=== PATIENT | male | born 1990 | race Caucasian/White ===

== ENCOUNTER 2017-02-27 14:01 | Emergency (ER) | payer MEDICAID ==
--- NOTE | 2017-02-27 15:31 | ERNOTE ---
<VonSameer bowie - Last Filed: 02/27/17 15:30> Lower Extremity HPI - General Time Seen by Provider: 02/27/17 15:30 - Immun/Allergies/Home Medications Immunizations: IMMUNIZATION HX Immunizations Up to Date Yes History of Influenza Vaccine No Hx Pneumococcal Vaccination No Allergies/Adverse Reactions: Allergies Allergy/AdvReac Type Severity Reaction Status Date / Time No Known Allergies Allergy Verified 02/27/17 14:51 Home Medications: HOME MEDICATIONS Methylphenidate [Daytrana] 1 each TD DAILY 02/27/17 [Last Taken Unknown] Ondansetron [Zofran Odt] 4 mg PO Q6H PRN #20 tab 02/27/17 [Last Taken Unknown] - Patient's Past Medical History Patient History - Medical: ADHD, Other Patient History - Cardiac/Respiratory: No pertinent hx Patient History - Cancer: No Hx of Cancer Patient History - Surgical Procedures: Gastric Bypass Patient History - Other: None - Social History Living Situations: home Abuse History: No History of abuse Psych History: No pertinent hx Smoking Status: Current every day smoker Have you smoked in the past 12 months: Yes Alcohol Use: sober Drug Use: none - Immunizations Immunizations Up to Date: Yes Hx Pneumococcal Vaccination: No History of Influenza Vaccine: No ED Progress - Vital Signs Vital Signs: Vital Signs 02/27/17 14:48 Temperature 37.4 C Pulse Rate 884 H Respiratory 16 Rate Blood Pressure 130/65 O2 Sat by Pulse 99 Oximetry - Progress/Reassessment Chief Complaint: Ankle Injury/ Pain Departure Clinical Impression: Gout attack Qualifiers: Gout site: ankle Gout etiology: other secondary cause Laterality: right Qualified Code(s): 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 Continue to keep her follow-up appointment on Tuesday with your primary care physician. Referrals: Carleen Nuñez APN [Primary Care Provider] - Prescriptions: Ondansetron [Zofran Odt] 4 mg PO Q6H PRN #20 tab PRN Reason: Nausea <Bone,Brad - Last Filed: 02/27/17 22:50> Lower Extremity HPI - Narrative Date of Service: 02/27/17 - General Lower Extremities Pain: ankle: right Source: patient Exam Limitations: no limitations - Immun/Allergies/Home Medications Immunizations: IMMUNIZATION HX Immunizations Up to Date Yes History of Influenza Vaccine No Hx Pneumococcal Vaccination No - History of Present Illness Narrative: 27-year-old male came to the emergency room for what he described as a count attack to his right ankle. Patient states he has pain when he applies pressure to the right ankle when walking. Patient states that he has a history of gout. Date (Duration): 02/27/17 Occurred: this morning Location of Incident: home Method of Injury: Reports: no apparent injury Loss of Consciousness: Reports: no loss of consciousness Modifying Factors - (Improves): Reports: rest Modifying Factors - (Worsens): Reports: movement Associated Symptoms: Reports: unable to bear weight Other Injuries: Reports: none Subsequent Symptoms: Denies: sensory loss, numbness, motor loss, bowel/bladder problem Review of Systems - Review of Systems Constitutional: Present: no symptoms reported EYE: Present: no symptoms reported ENT: Present: no symptoms reported Respiratory: Present: no symptoms reported Cardiology: Present: no symptoms reported Gastrointestinal/Abdominal: Present: no symptoms reported Genitourinary: Present: no symptoms reported Musculoskeletal: Present: See HPI, joint pain Skin: Present: no symptoms reported Neurological: Present: no symptoms reported Endocrine: Present: no symptoms reported Hematologic/Lymphatic: Present: no symptoms reported Psych: Present: no symptoms reported All Other Systems: All systems neg except as marked Physical Exam - Physical Exam Narrative: pain with movement/manipulation. states he did eat salmon several times this week and thinks it may be a contributing factor. General Appearance: Present: wd/wn, alert, no apparent distress Eye Exam: Normal inspection: bilateral Ears, Nose, Throat: Present: normal ENT inspection Neck: Present: normal inspection Respiratory: Present: no respiratory distress, normal breath sounds, lungs clear Cardiovascular/Chest: Present: regular rate, rhythm, no murmur Gastrointestinal/Abdominal: Present: normal bowel sounds, soft Back Exam: Present: normal inspection, normal range of motion Extremity Exam: Present: normal except - - ankle pain with manipulation, decreased range of motion. Absent: pedal edema, bony tenderness, joint redness , joint swelling, extremity edema Neurological Exam: Present: alert, normal mood/affect Skin Exam: Present: normal color, warm/dry Lymphatic Exam: Present: no adenopathy ED Progress - Results and Orders Patient's Lab Results:: I have reviewed the patient's lab results. Results and Orders: elevated uric acid level - Vital Signs Vital Signs: Vital Signs 02/27/17 02/27/17 14:48 16:05 Temperature 37.4 C Pulse Rate 884 H 92 Respiratory 16 12 Rate Blood Pressure 130/65 145/78 O2 Sat by Pulse 99 99 Oximetry - Progress/Reassessment Progress:: Improved Progress Note-Subjective: 02/27/17 22:50 im pain medication Plan - Plan Plan: Patient states that any oral Medications for GOUT do not work for him. He is refusing to take any here also. He says he has pain medication ( norco) at home and and will take that.
[2017-02-27] MEDS ORDERED: KETOROLAC TROMETHAMINE 60 MG/2 ML VIAL IM ONE ×2 (15:39→16:01)
--- OUTSIDE RECORDS SUMMARY | 2017-02-27 15:49 | XMS REPORT | Continuity of Care Document ---
:1990 Author Organization [facility] [place] [address] Care Team Providers Name Role Phone Carleen Nuñez Primary Care Provider [phone] Source Comments This disclosure is being made pursuant to the [employer] program and maynot contain all information available regarding this patient.[facility] Active Allergies and Adverse Reactions No Known Allergies Current Medications Be aware that medications may not be up to date as of this document. Alwaysverify current medications with the patient. Prescription Sig. Disp. Refills Start Date End Date Status HYDROcodone-acetaminophen Take 1 tablet by 0 07/02/2016 Active (NORCO) 5-325 MG per mouth every 6 (six) tablet hours as needed. Active Problems Not on file Most Recent Encounters Date Type Specialty Providers Description 02/17/2017 Data Import Social History Tobacco Use Types Packs/Day Years Used Date Current Every Day Smoker Cigarettes Smokeless Tobacco: Current User Chew Tobacco Cessation:Counseling Given: Yes Comments: Last Filed Vital Signs Vital Sign Reading Time Taken Blood Pressure 118/88 07/08/2016 10:21 AM CDT Pulse - - Temperature - - Respiratory Rate - - Height 1.829 m (6') 07/08/2016 10:21 AM CDT Weight 109.77 kg (242 lb) 07/08/2016 10:21 AM CDT Body Mass Index 32.81 07/08/2016 10:21 AM CDT Oxygen Saturation - - Plan of Care Health Maintenance Due Date Last Done Comments Pneumococcal Medium Risk 19-64 yo (1 of 1 - PPSV23) 02/01/2007 Tetanus/Pertussis (1 - Tdap) 02/01/2007 Influenza Immunization (#1) 2016 Results from Last 3 Months Not on file
[2017-02-27 16:06] VITALS: BP 145/78
== END 2017-02-27 17:04 | disposition home or self-care (01) ==
LOC: ER 14:01
DX: Z72.0 Tobacco use (principal); F90.9 Attention-deficit hyperactivity disorder, unspecified type